=== PATIENT | female | born 1960 | race Caucasian/White ===

== ENCOUNTER 2020-01-09 22:17 | Emergency (ER) | payer OTHER ==
[~2020-01-09] VITALS: Ht 162.6 cm; Wt 99.8 kg
[~2020-01-09 22:17] MED LIST: ALBU18 IN; ALL100T PO; AMIO200T33 PO; AMIT50TA3 PO; CARV6.2551 PO; CHOL20003 PO; DOCU250C3 PO; EPLE25TA4 PO; ESTR1TAB3 PO; FLUT250M2 IN; FURO40TA4 PO; HYDR-531 PO; NUTRTAB44 PO; SIMV-8 PO; TIOTCAP INH; ZOLP10TA6 PO
[2020-01-09] MEDS ORDERED: SODIUM BICARBONATE 8.4% INJ 50ML SYRINGE IV ONE (22:18)
[2020-01-09] MEDS ORDERED: EPINEPHrine HCL 1 MG/10 ML SYRG IV ONE (22:18)
== END 2020-01-10 04:07 | disposition home or self-care (01) ==
LOC: EDBD 22:17 → ER 22:17
DX: I46.9 Cardiac arrest, cause unspecified (principal); I11.0 Hypertensive heart disease with heart failure; I50.42 Chronic combined systolic (congestive) and diastolic (congestive) heart failure; J44.9 Chronic obstructive pulmonary disease, unspecified; E78.5 Hyperlipidemia, unspecified; F17.210 Nicotine dependence, cigarettes, uncomplicated; Z88.0 Allergy status to penicillin
CPT/HCPCS: 92950; 99291; J0171; 31500